=== PATIENT | female | born 1955 | race Caucasian/White ===

== ENCOUNTER → 2018-02-21 | Outpatient (CLI) | payer BC ==
[~2018-02-21] MED LIST: ASPIRIN 81M81 MG/TA2 PO; GLUCOPHAGE1000 MG PO; GLUCOTROL 5M5 MG/TAB PO; LANTUS SOLOS100 U/ML; LOPRESSOR 225 MG/TAB PO; PRINIVIL40 MG PO; ZOCOR 20MG20 MG PO
== END ==
LOC: MC.RAD 08:16
DX: Z12.31 Encounter for screening mammogram for malignant neoplasm of breast (principal)